=== PATIENT | male | born 1980 | race Hispanic/Latino ===

== ENCOUNTER 2024-11-22 00:03 | Observation (INO) | payer SELFPAY ==
[2024-11-22] MEDS ORDERED: Naloxone 0.4 MG/ML SDV IVPUSH PRN ×3 (00:20→02:51)
[2024-11-22] MEDS: Sodium Chloride 0.9% 1,500 ML IV ONE (00:30)
[2024-11-22] MEDS: fentaNYL 100 MCG/2 ML SDV IVPUSH ONE ×2 (00:31→02:00)
[2024-11-22] MEDS: Ondansetron 4 MG/2 ML SDV IVPUSH ONE ×2 (00:31→02:00)
[2024-11-22] MEDS: Pantoprazole 40 MG Vial IVPUSH ONE (00:31)
[2024-11-22 00:39] LABS: BASOPHILS ABSOLUTE AUTO 0.1 K/mm3 (0.0-0.2); BASOPHILS PERCENT AUTO 0.3 % (0.0-1.0); EOSINOPHILS PERCENT AUTO 0.2 % (0.0-6.0); HEMATOCRIT 47.5 % (42.0-52.0); HEMOGLOBIN 16.2 gm/dl (14.0-18.0); IMMATURE GRAN ABSOLUTE AUTO 0.06 K/mm3 (0.00-0.05); IMMATURE GRAN PERCENT AUTO 0.4 % (0.0-0.4); LYMPHOCYTES ABSOLUTE AUTO 2.5 K/mm3 (1.0-4.8); LYMPHOCYTES PERCENT AUTO 16.4 % (24.0-44.0); MEAN CORPUSCULAR HEMOGLOBIN 27.9 pg (28.0-32.0); MEAN CORPUSCULAR HGB CONC 34.1 g/dl (32.0-36.0); MEAN CORPUSCULAR VOLUME 81.9 fl (83.0-99.0); MONOCYTES ABSOLUTE AUTO 0.6 K/mm3 (0.0-0.8); MONOCYTES PERCENT AUTO 3.7 % (0.0-8.0); PLATELET COUNT,PLT 258 K/mm3 (150-400); WHITE BLOOD CELL COUNT,WBC 15.25 K/mm3 (3.9-11.3)
[2024-11-22 01:01] LABS: A/G RATIO 1.1 (1-2); ALBUMIN 4.3 g/dl (3.4-5.0); ANION GAP 18.8 (5-15); BILIRUBIN TOTAL 0.4 mg/dL (0.2-1.0); BUN/CREATININE RATIO 10.9 (14-18); CREATININE 1.1 mg/dL (0.7-1.3); EST CRCL DRUG DOSING (CG) 78.94 mL/min; MAGNESIUM 1.8 mg/dL (1.8-2.4); POTASSIUM,K 3.8 mEq/L (3.5-5.1); PROTEIN TOTAL,TP 8.3 g/dl (6.4-8.2)
[2024-11-22 01:43] LABS: BARBITURATE SCREEN,URINE NEGATIVE (CUTOFF=200); BENZODIAZEPINES SCREEN,URINE NEGATIVE (CUTOFF=150); BUPRENORPHINE SCREEN,URINE NEGATIVE (CUTOFF=10); METHADONE SCREEN, URINE NEGATIVE (CUT0FF=200); METHAMPHETAMINES SCREEN, URINE NEGATIVE (CUTOFF=500); OXYCODONE SCREEN,URINE NEGATIVE (CUT0FF=100); THC SCREEN,URINE 20 NG/ML NEGATIVE (CUTOFF=50)
[2024-11-22 01:45] LABS: AMPHETAMINES SCREEN, URINE NEGATIVE (CUTOFF=500)
[2024-11-22] MEDS: Piperacillin/Tazobactam 4.5 GM in Sodium Chloride 0.9% 100 ML IV ONE (02:33)
[2024-11-22] MEDS: Ondansetron 4 MG/2 ML SDV IVPUSH SCH (02:39)
[2024-11-22] MEDS: Sodium Chloride 0.9% 1,000 ML IV SCH ×2 (03:16→05:21)
[2024-11-22] MEDS: HYDROmorphone 1 MG/ML Syringe IVPUSH PRN (03:31)
[2024-11-22 07:06] LABS: BASOPHILS PERCENT AUTO 0.1 % (0.0-1.0); HEMATOCRIT 40.5 % (42.0-52.0); HEMOGLOBIN 13.5 gm/dl (14.0-18.0); IMMATURE GRAN ABSOLUTE AUTO 0.05 K/mm3 (0.00-0.05); IMMATURE GRAN PERCENT AUTO 0.4 % (0.0-0.4); LYMPHOCYTES ABSOLUTE AUTO 0.9 K/mm3 (1.0-4.8); LYMPHOCYTES PERCENT AUTO 6.7 % (24.0-44.0); MEAN CORPUSCULAR HEMOGLOBIN 28.1 pg (28.0-32.0); MEAN CORPUSCULAR HGB CONC 33.3 g/dl (32.0-36.0); MEAN CORPUSCULAR VOLUME 84.2 fl (83.0-99.0); MEAN PLATELET VOLUME 9.9 fl (9.4-12.4); MONOCYTES ABSOLUTE AUTO 0.6 K/mm3 (0.0-0.8); NEUTROPHILS ABSOLUTE AUTO 12.4 K/mm3 (1.8-7.7); NEUTROPHILS PERCENT AUTO 88.8 % (41.0-71.0); PLATELET COUNT,PLT 198 K/mm3 (150-400); RED BLOOD CELL COUNT 4.81 M/mm3 (4.52-5.90); WHITE BLOOD CELL COUNT,WBC 13.91 K/mm3 (3.9-11.3)
[2024-11-22 07:22] LABS: A/G RATIO 0.9 (1-2); ALBUMIN 3.1 g/dl (3.4-5.0); BILIRUBIN TOTAL 0.4 mg/dL (0.2-1.0); EST CRCL DRUG DOSING (CG) 83.71 mL/min; PROTEIN TOTAL,TP 6.4 g/dl (6.4-8.2)
[2024-11-22 07:28] LABS: CALCIUM 8.3 mg/dL (8.5-10.1)
[2024-11-22] MEDS ORDERED: Lidocaine 2% 5 ML SDV ONE (12:50)
[2024-11-22] MEDS ORDERED: Sugammadex Sodium 200 MG/2 ML VIAL IV ONE (12:50)
[2024-11-22] MEDS ORDERED: Dexamethasone 4 MG/ML 5 ML MDV ONE (12:50)
[2024-11-22] MEDS ORDERED: fentaNYL 100 MCG/2 ML SDV ONE ×2 (12:50→15:10)
[2024-11-22] MEDS ORDERED: Propofol 200 MG/20 ML SDV ONE (12:50)
[2024-11-22] MEDS ORDERED: Ketorolac 30 MG/ML SDV ONE (12:50)
[2024-11-22] MEDS ORDERED: Ondansetron 4 MG/2 ML SDV ONE (12:50)
[2024-11-22] MEDS ORDERED: Bupivacaine 0.5% 10 ML SDV ONE (13:23)
[2024-11-22] MEDS ORDERED: ceFAZolin 2 GM Vial ONE (14:29)
[2024-11-22] MEDS ORDERED: Lactated Ringers 1,000 ML ONE ×2 (14:37→15:38)
[2024-11-22] MEDS ORDERED: Ketamine 200 MG/20 ML MDV ONE (14:41)
[2024-11-22] MEDS ORDERED: Rocuronium 50 MG/5 ML Vial ONE (15:15)
[2024-11-22] MEDS ORDERED: HYDROmorphone 0.5 MG/0.5 ML Syringe IVPUSH PRN (15:40)
[2024-11-22] MEDS ORDERED: Ondansetron 4 MG/2 ML SDV IVPUSH PRN (15:40)
[2024-11-22] MEDS ORDERED: fentaNYL 100 MCG/2 ML SDV IVPUSH PRN (15:40)
[2024-11-22] MEDS: Bupivacaine 0.5% 10 ML SDV ONE (15:44)
[2024-11-22] MEDS: Lidocaine 1% 30 ML SDV ONE (15:44)
[2024-11-22] MEDS: EPINEPHrine 1 MG/ML SDV ONE (15:44)
== END 2024-11-22 19:53 | disposition home or self-care (01) ==
LOC: JD.ED 00:03 → JD.MS 02:30 → JD.ICU 03:08
PROVIDERS: ADMIT Surgery; ATTEND Surgery
DX: K80.00 Calculus of gallbladder with acute cholecystitis without obstruction (principal); K82.A1 Gangrene of gallbladder in cholecystitis
CPT/HCPCS: 36415; 47562; 76705; 80053; 80306; 80307; 82550; 83690; 83735; 85025; 96361; 96365; 96375; 96376; 99285; G0378; J0171; J0665; J0690; J1100; J1171; J1885; J2003; J2405; J2470; J2543; J2704; J3010; J3490; J7030; J7120; 00790; 99140; 99284